=== PATIENT | male | born 1950 | race Caucasian/White ===

== ENCOUNTER 2019-12-21 14:14 | Inpatient (IN) | payer OTHER, SELFPAY ==
[~2019-12-21] VITALS: Ht 185.4 cm; Wt 69.4 kg
[2019-12-21] MEDS ORDERED: TAMSULOSIN HCL0.4 MG PO (14:21)
[2019-12-21] MEDS ORDERED: ASPIRIN ADULT L81 M5 PO (14:22)
[2019-12-21] MEDS ORDERED: ATORVASTATIN CA10 M1 OP (14:22)
[2019-12-21 14:26] VITALS: Ht 185.4 cm; Wt 69.4 kg
[2019-12-21 15:17] LABS: microscopic required? YES; urine erythrocyte NEGATIVE (NEGATIVE)
[2019-12-21 15:20] LABS: BASOPHIL % 0.2 % (0-2); PLATELET COUNT 111 x10^3mcL (130-400)
[2019-12-21 15:36] LABS: CALCIUM 7.9 mg/dL (8.5-10.1); CHLORIDE SERUM 101 mmol/L (98-107); CREATININE SERUM 0.8 mg/dL (0.7-1.3); GFR1 > 60 mL/min; GLUCOSE SERUM 103 mg/dL (74-106); POTASSIUM SERUM 3.4 mmol/L (3.5-5.1); SODIUM SERUM 139 mmol/L (136-145)
[2019-12-21 15:39] LABS: ALKALINE PHOSPHATASE 52 U/L (46-116); ALT/SGPT 28 U/L (16-63); AST/SGOT 46 U/L (15-37); BILIRUBIN TOTAL 0.7 mg/dL (0.20-1.00); C REACTIVE PROTEIN 5.7 mg/dL (<=0.9); LACTIC DEHYDROGENASE (LDH) 381 U/L (100-190); TOTAL PROTEIN, SERUM 6.4 g/dL (6.4-8.2)
[2019-12-21 15:40] LABS: ALBUMIN 2.6 g/dL (3.4-5.0)
[2019-12-21 18:18] VITALS: BP 104/66
[2019-12-21 21:48] VITALS: BP 104/66
[2019-12-22 05:55] VITALS: BP 105/69
[2019-12-22 06:33] LABS: BASOPHIL % 0.1 % (0-2)
[2019-12-22 06:44] LABS: PLATELET COUNT 111 x10^3mcL (130-400)
[2019-12-22 06:59] LABS: CALCIUM 8.2 mg/dL (8.5-10.1); CARBON DIOXIDE 28.8 mmol/L (21-32); CHLORIDE SERUM 103 mmol/L (98-107); CREATININE SERUM 0.8 mg/dL (0.7-1.3); GFR1 > 60 mL/min; GLUCOSE SERUM 89 mg/dL (74-106); POTASSIUM SERUM 3.9 mmol/L (3.5-5.1); SODIUM SERUM 140 mmol/L (136-145)
[2019-12-22 08:00] VITALS: BP 99/60
[2019-12-22 12:30] VITALS: BP 96/58
[2019-12-22 18:25] VITALS: BP 101/68
[2019-12-22 21:00] VITALS: BP 97/65
[2019-12-23 06:00] VITALS: BP 94/64
[2019-12-23 07:13] LABS: CALCIUM 8.5 mg/dL (8.5-10.1); CARBON DIOXIDE 30.8 mmol/L (21-32); CHLORIDE SERUM 106 mmol/L (98-107); CREATININE SERUM 0.8 mg/dL (0.7-1.3); GFR1 > 60 mL/min; GLUCOSE SERUM 92 mg/dL (74-106); POTASSIUM SERUM 4.6 mmol/L (3.5-5.1); SODIUM SERUM 142 mmol/L (136-145)
[2019-12-23 07:45] LABS: BASOPHIL % 0.4 % (0-2); PLATELET COUNT 134 x10^3mcL (130-400); RED CELL DISTRIBUTION WIDTH 13.2 % (11.5-14.5)
[2019-12-23 08:45] VITALS: BP 96/62
[2019-12-23 12:53] VITALS: BP 94/59
[2019-12-23 16:35] VITALS: BP 98/63
[2019-12-23 19:30] VITALS: BP 106/67
[2019-12-23 20:30] VITALS: BP 108/87
[2019-12-24 06:09] VITALS: BP 103/66
[2019-12-24 08:52] VITALS: BP 92/61
[2019-12-24 12:54] VITALS: BP 84/52
[2019-12-24 16:42] VITALS: BP 114/73
[2019-12-24 20:40] VITALS: BP 113/70
[2019-12-25 05:18] VITALS: BP 104/65
[2019-12-25 08:30] VITALS: BP 97/63
[2019-12-25 17:00] VITALS: BP 126/72
[2019-12-25 21:00] VITALS: BP 105/66
[2019-12-26 06:30] VITALS: BP 104/64
[2019-12-26 07:32] LABS: CALCIUM 8.4 mg/dL (8.5-10.1); CARBON DIOXIDE 28.7 mmol/L (21-32); CHLORIDE SERUM 103 mmol/L (98-107); CREATININE SERUM 0.7 mg/dL (0.7-1.3); GFR1 > 60 mL/min; GLUCOSE SERUM 84 mg/dL (74-106); POTASSIUM SERUM 3.2 mmol/L (3.5-5.1); SODIUM SERUM 141 mmol/L (136-145)
[2019-12-26 07:46] LABS: BASOPHIL % 0.5 % (0-2); PLATELET COUNT 241 x10^3mcL (130-400)
[2019-12-26 09:30] VITALS: BP 112/72
[2019-12-26 12:30] VITALS: BP 100/58
[2019-12-26 17:30] VITALS: BP 100/58
[2019-12-27 05:45] VITALS: BP 100/68
[2019-12-27 09:13] VITALS: BP 90/63
[2019-12-27 12:28] LABS: CALCIUM 8.5 mg/dL (8.5-10.1); CARBON DIOXIDE 30.5 mmol/L (21-32); CHLORIDE SERUM 104 mmol/L (98-107); CREATININE SERUM 0.9 mg/dL (0.7-1.3); GFR1 > 60 mL/min; GLUCOSE SERUM 105 mg/dL (74-106); POTASSIUM SERUM 4.5 mmol/L (3.5-5.1); SODIUM SERUM 140 mmol/L (136-145)
[2019-12-27 12:36] VITALS: BP 90/63
[2019-12-27 13:30] VITALS: BP 96/56
[2019-12-27 13:38] LABS: BASOPHIL % 0.5 % (0-2); PLATELET COUNT 313 x10^3mcL (130-400); RED CELL DISTRIBUTION WIDTH 12.3 % (11.5-14.5)
== END 2019-12-27 14:15 | disposition other institution (70) | DRG 177 ==
LOC: ED 14:14 → DU 16:01
PROVIDERS: Emergency Medicine; ADMIT Internal Medicine
DX: U07.1 COVID-19 (principal); J96.01 Acute respiratory failure with hypoxia; J12.89 Other viral pneumonia; E78.5 Hyperlipidemia, unspecified; N40.0 Benign prostatic hyperplasia without lower urinary tract symptoms; D72.829 Elevated white blood cell count, unspecified; D69.6 Thrombocytopenia, unspecified; E78.00 Pure hypercholesterolemia, unspecified; Z79.899 Other long term (current) drug therapy
CPT/HCPCS: 36600; 83880; 85378; G0378; J0456; J0696; J1650; J7040; J7060; Q0092

== ENCOUNTER 2020-01-10 12:22 | Inpatient (IN) | payer OTHER, SELFPAY ==
[~2020-01-10] VITALS: Ht 182.9 cm; Wt 68.9 kg
[~2020-01-10 12:22] MED LIST: ASPIRIN ADULT L81 M5 PO; ATORVASTATIN CA10 M1 OP; TAMSULOSIN HCL0.4 MG PO
[2020-01-10 12:33] VITALS: Ht 182.9 cm; Wt 68.9 kg
[2020-01-10 12:53] LABS: BASOPHIL % 1.5 % (0-2); PLATELET COUNT 279 x10^3mcL (130-400); RED CELL DISTRIBUTION WIDTH 13.3 % (11.5-14.5)
--- NOTE | 2020-01-10 12:56 | NUR ---
BIB [facility] FROM [facility] FOR INITIAL CALL OF SOB. PT PRESENTS AND DENIES BEING SOB AT ANYTIME TODAY. PT STATES HE HAD LOW B/P PER THE RN AT THE [facility]. [facility] NURSING STAFF INSISTED PT BE TRANSPORTED TO [facility] IN SPITE OF PT BEING ASYMPTOMATIC WHEN [facility] ARRIVE. PT MENTATION APPROPRIATE. DENIES SYMPTOMS OF LIGHTHEADEDNESS OR DIZZINESS. COMFORT MEASURES AND SUPPORTIVE CARE INITIATED. PREP FOR ERMD MSE. O2 2L REMOVED FOR ABG. DURING 5 MIN IN ROOM (OFF 02) PT 02 SATS REMAINED 95-95%.AGENCY DOCUMENTATION DONE BY Staff Name/Title - :TAMIKA NORWOOD RN [employer] User ID - :[id number] Agency Name - :CERTIFIED Time Documented - From - :0700 To - :1900
[2020-01-10 13:06] LABS: CALCIUM 8.5 mg/dL (8.5-10.1); CHLORIDE SERUM 104 mmol/L (98-107); CREATININE SERUM 0.9 mg/dL (0.7-1.3); GFR1 > 60 mL/min; GLUCOSE SERUM 90 mg/dL (74-106); POTASSIUM SERUM 3.8 mmol/L (3.5-5.1); SODIUM SERUM 138 mmol/L (136-145)
--- NOTE | 2020-01-10 13:09 | NUR ---
CONTINUED CARE ENDORSED TO EDDI MONCADA. PT STABLE AT THIS TIME.
[2020-01-10 13:10] LABS: ALKALINE PHOSPHATASE 83 U/L (46-116); ALT/SGPT 48 U/L (16-63); AST/SGOT 30 U/L (15-37); BILIRUBIN TOTAL 0.5 mg/dL (0.20-1.00); C REACTIVE PROTEIN 1.9 mg/dL (<=0.9); LACTIC DEHYDROGENASE (LDH) 183 U/L (100-190)
[2020-01-10 13:16] LABS: ALBUMIN 2.7 g/dL (3.4-5.0)
--- NOTE | 2020-01-10 13:22 | NUR ---
ASSUMING CARE OF PT. PT SITTING IN POSITION OF COMFORT. AWAKE AND ALERT. PT STATES AFTER TALKING WITH HIS ON THE PHONE AND WALKING FROM HIS RROM TO ANOTHER THE STAFF TOOK HIS ROUTINE VITALS FOR THE AM. THEY STATED THAT BP AND O2 WAS LOW AND THAT IS THE REASON FOR TRANSFER HERE. AT THE TIME OF ASSESSMENT PT BP 103/62 AND C2 IS 97% RA. LUNGS CTA- LEFT SIDE SLIGHTLY DEMINISHED. RESP EVEN AND UNLABORED. PT SPEAKING FULL AND COMPLETE SENTENCES. AA/OX4. PT STATES "I AM FEELING FINE AND NORMAL" PT HAS NO COMPLAINTS AT THIE TIME. PT ON FULL CM. 2 CIM OFFICERS OUTSIDE THE ROOM. PT DENIES COUGH, SOB OR DIZZINESS. WILL CONT TO MONITOR.
[2020-01-10 13:43] LABS: microscopic required? NO
[2020-01-10 14:14] LABS: urine erythrocyte NEGATIVE (NEGATIVE)
--- NOTE | 2020-01-10 14:34 | NUR ---
PT RESTING IN BED IN POSITION OF COMFORT. RESP EVEN AND UNLABORED. AWAKE AND ALERT. WILL CONT TO MONITOR.
--- NOTE | 2020-01-10 14:39 | NUR ---
REPORT CALLED TO KATHY MONCADA TO ASSUME CARE OF PT.
[2020-01-10 15:17] VITALS: BP 106/69
--- NOTE | 2020-01-10 15:40 | NUR ---
PATIENT RECIEVED FROM EMERGENCY ROOM AND IS UNDER COVID PROTOCAL. DEENA TWAS HERE ABOUT 16 DAYS AGO AND POSITIVE OF COVID AGT THAT TIME. HE WAS TREATED AND THEN RETURNED TO [facility] WHEN HE MET THE CRITERIA AFTER BEING SEEN AND TREATED FOR SOME TIME BY DR GOINS AND DR RICH. PATIENT HAS IV TO THE LEFT FROEARM AND HAD RECEIVED A BOLUS IN THE ER. PATIENT HAS BEEN AMBULATORY WT HISTORY OF COVID, PROSTATE ENLARGEMENT AND LIPIDEMIA. PATINGHIA THAS VITALS AT THIS TIME AT 1036/69, 20, 73, 98.6, 99%. GUARDS AT BEDSIDE AND SECURITY HAS BEEN MAINTAINED. WILL SEND MRSA OF THE [facility] PER PROTOCAL.
[2020-01-10 17:50] VITALS: BP 118/66
--- NOTE | 2020-01-10 18:42 | NUR ---
TOOK THE COVID TEST ORDERED ALONG IWTH THE MRSA. PATIENT HAS BEEN GIVEN ZOSYN AND TO FOLLOW UP WITH ZITHROMAX. DENIES ANY DIZZINESS OR SOB AT THIS TIME. GUARDS AT BEDSIDE AND SECURITY HAS BEEN MAINTAINED.
--- NOTE | 2020-01-10 19:15 | NUR ---
RECIEVED PT RESTING IN BED WITH NO ACUTE DISTRESS NOTED AT THIS TIME, ASSESSMENT PERFORMED AT THIS TIME (SEE SHIFT ASSESSMENT), PT IS A/OX4 NO COMPLAINTS OF PEREZ OR DIZZINESS AT THIS TIME, PT DENIES CHEST PAIN OR PRESSURE, PT LUNG SOUNDS MILDLY DIMINISHED, NO SOB ON RA, RESPIRATIONS EVEN AND UNLABORED, O2 SATURATION AT 98%, PERIPHERAL PULSES PALPABLE THROUGHOUT, NO EDEMA NOTED AT THIS TIME, CAP REFILL LESS THAN 3 SECONDS, TELE 3 NSR, IV TO THE LFA SALINE LOCKED, ALL NEEDS ATTENDED TO AT THIS TIME, SAFETY PRECAUTIONS IN PLACE, WILL CONTINUE TO MONITOR
[2020-01-10 20:15] VITALS: BP 87/56
--- NOTE | 2020-01-10 20:15 | NUR ---
PT BP 87/56 HR OF 89, PT ASYMPTOMATIC, INFORMED DR SAUCEDO, OBTAINED ORDER FOR NS BOLUS OF 250ML, WILL IMPLEMENT ORDER AND REASSESS.
[2020-01-10 21:30] VITALS: BP 95/65
--- NOTE | 2020-01-10 21:45 | NUR ---
PT BLOOD PRESSURE 95/65, INFORMED DR SAUCEDO, NO NEW ORDERS AT THIS TIME.
--- NOTE | 2020-01-10 23:21 | NUR ---
DR SNYDER BY AND DISCUSSED PLAN OF CARE.
--- NOTE | 2020-01-10 23:40 | NUR ---
PT RESTING IN BED WATCHING TV WITH NO ACUTE DISTRESS NOTED AT THIS TIME, PT DENIES PAIN OR SOB AT THIS TIME, ALL NEEDS ATTNEDED TO AT THIS TIME,SAFETY PRECAUTIONS IN PLACE, WILL CONTINUE TO MONITOR
[2020-01-11 04:37] VITALS: BP 92/64
--- NOTE | 2020-01-11 05:16 | NUR ---
PT RESTED COMFORTABLY THROUGH THE NIGHT WITH NO ACUTE DISTRESS. PT DID HAVE EPISODE OF HYPOTENSION, DR SAUCEDO WAS MADE AWARE AND 250ML BOLUS WAS GIVEN AND PT BP INCREASED AND DR SAUCEDO WAS MADE AWARE AND NO NEW ORDERS WERE GIVEN AT THAT TIME, PT REMAINED ASYMPTOMATIC, ALL PT NEEDS ATTNEDED TO THOUGH CARE, PT HAD NO EPISODES OF SOB ON RA, SAFETY PRECAUTIONS IN PLACE WILL CONTINUE TO MONITOR
[2020-01-11 06:33] LABS: BASOPHIL % 0.4 % (0-2); PLATELET COUNT 257 x10^3mcL (130-400); RED CELL DISTRIBUTION WIDTH 13.6 % (11.5-14.5)
[2020-01-11 06:45] LABS: CALCIUM 8.6 mg/dL (8.5-10.1); CARBON DIOXIDE 28.9 mmol/L (21-32); CHLORIDE SERUM 107 mmol/L (98-107); GFR1 > 60 mL/min; GLUCOSE SERUM 77 mg/dL (74-106); POTASSIUM SERUM 4.5 mmol/L (3.5-5.1); SODIUM SERUM 142 mmol/L (136-145)
--- NOTE | 2020-01-11 07:40 | NUR ---
RECEIVED PT IN BED A/A/OX4 DENIES PEREZ. RESP EVEN AND UNLABORED WITH DIMINISHED BS TO RLL. NO COUGH NOTED AT THIS TIME. REPORTS IMPROVEMENT WITH BREATHING. ON CONT PULSE OX AT 96% ON RA. ENCOURAGE DEEP BREATHING AND PRONING TOLERATED. NSR IN 70S. NO EDEMA NOTED WITH IV TO LFA. ABD SOFT, NONTENDER WITH ACTIVE BS X4. VOIDING FREELY USING URINAL. CALL LIGHT IN REACH NEEDS ATTENDED TO.
[2020-01-11 08:25] VITALS: BP 100/68
--- NOTE | 2020-01-11 11:20 | NUR ---
PT PROVIDED WITH I.S. REQUESTED BY DR. RICH, PT GIVEN INSTRUCTIONS ON USE. TO USE 10X/HR WHILE AWAKE. PT VERBALIZED UNDERSTANDING AND SATATED HE HAD USED ON BEFORE. CALL LIGHT IN REACH NEEDS ATTENDED TO.
[2020-01-11 12:35] VITALS: BP 92/60
--- NOTE | 2020-01-11 15:30 | NUR ---
PT RESTING AT THIS TIME. DENIES ANY DISCOMFORT. CALL LIGHT IN REACH NEEDS ATTENDED TO. C.O. AT DOOR.
[2020-01-11 16:39] VITALS: BP 104/55
--- NOTE | 2020-01-11 18:40 | NUR ---
PT RESTING AT THIS TIME. DENIES ANY DISCOMFORT CALL LIGHT IN REACH NEEDS ATTENDED . DENIES ANY PAIN/DISCOMFORT. CALL LIGHT IN REACH NEEDS ATTENDED TO AND ANTICIPATED. C.O. AT DOOR.
--- NOTE | 2020-01-11 19:44 | NUR ---
RECIEVED PT FROM PREVIOUS SHIFT NURSE. PT RESTING COMFORTABLY IN BED, HOB ELEVATED, AOX4, ABLE TO FOLLOW COMMANDS, SPEECH CLEAR, DENIES PEREZ, N/V, OR PAIN AT THE MOMENT, NO FACIAL DROOPING NOTED, AND PT CALM AND COOPERATIVE. RR EVEN AND UNLABORED ON RA, CHEST RISING EQUALLY, DENIES SOB, DIFFICULTY BREATHING, AND NO COUGH NOTED. TELE #3 NSR, CONT PULSE OX O2: 97, DENIES CHEST PAIN OR PRESSURE. IV LFA WNL, NO ERYTHEMA, EDEMA, OR DRAINAGE NOTED, SALINE LOCKED AT THE MOMENT. PT MAINTAINED ON DROPLET/CONTACT PRECAUTION FOR COVID (+). BED IN LOWEST POSITION AND CALL LIGHT WITHIN REACH. TWO CORRECTIONAL OFFICERS PRESENT. WILL CONTINUE TO MONITOR.
[2020-01-11 21:12] VITALS: BP 104/63
--- NOTE | 2020-01-11 21:30 | NUR ---
RECIEVED VANCO TROUGH LEVEL OF 11.7. PER [employer], OKAY TO GIVE THE 2100 DOSE.
--- NOTE | 2020-01-11 22:18 | NUR ---
PT INSTRUCTED ON THE IMPORTANCE OF USING THE INCENTIVE SPIROMETER AT BED SIDE.
--- NOTE | 2020-01-12 02:01 | NUR ---
PT RESTING COMFORTABLY IN BED, EASILY AROUSABLE. RR EVEN AND UNLABORED ON RA, CHEST RISING EQUALLY. TELE #3 NSR, CONT PULSE OX O2: 94%. NO SIGNS OF ACUTE CHANGE OR DISTRESS NOTED. IV LFA WNL, NO ERYTHEMA, EDEMA, OR DRAINAGE NOTED. PT MAINTINED ON DROPLET/CONTACT ISOLATION FOR COVID-19(+). BED IN LOWEST POSITION AND CALL LIGHT WITHIN REACH. TWO CORRECTIONAL OFFICERS PRESENT, WILL CONTINUE TO MONITOR.
[2020-01-12 05:45] VITALS: BP 88/57
--- NOTE | 2020-01-12 06:14 | NUR ---
PT RESTING COMFORTABLY IN BED, EASILY AROUSABLE. AOX4, ABLE TO FOLLOW COMMANDS, SPEECH CLEAR, DENIES PEREZ, N/V, OR PAIN AT THE MOMENT, NO FACIAL DROOPING NOTED, AND PT CALM AND COOPERATIVE WITH CARE. RR EVEN AND UNLABORED ON RA, CHEST RISING EQUALLY, DENIES SOB, DIFFICULTY BREATHING, AND NO COUGH NOTED. TELE #3 NSR, DENIES CHEST PAIN OR PRESSURE, CONT PULSE OX O2:96%. COMMODE AND URINAL AT BEDSIDE. IV LFA WNL, NO ERYTHEMA, EDEMA, OR DRAINAGE NOTED. PT ON DROPLET/CONTACT ISOLATION FOR COVID-19(+). BED IN LOWEST POSITION AND CALL LIGHT WITHIN REACH. TWO CORRECTIONAL OFFICERS PRESENT BY THE DOOR. WILL ENDORSE CARE TO ONCOMING SHIFT NURSE, AND WILL CONTINUE TO MONITOR.
[2020-01-12 07:03] LABS: ALBUMIN 2.4 g/dL (3.4-5.0); ALKALINE PHOSPHATASE 74 U/L (46-116); ALT/SGPT 34 U/L (16-63); AST/SGOT 19 U/L (15-37); BILIRUBIN TOTAL 0.57 mg/dL (0.20-1.00); C REACTIVE PROTEIN 1.6 mg/dL (<=0.9); CALCIUM 8.6 mg/dL (8.5-10.1); CARBON DIOXIDE 29.2 mmol/L (21-32); CHLORIDE SERUM 105 mmol/L (98-107); GFR1 > 60 mL/min; GLUCOSE SERUM 78 mg/dL (74-106); POTASSIUM SERUM 4.2 mmol/L (3.5-5.1); SODIUM SERUM 140 mmol/L (136-145); TOTAL PROTEIN, SERUM 6.6 g/dL (6.4-8.2)
--- NOTE | 2020-01-12 07:30 | NUR ---
RECEIVED PT IN BED A/A/OX4 DENIES PEREZ. RESP EVEN AND UNLABORED WITH DIMINISHED BS TO RLL. DENIES ANY COUGH AT THIS TIME. 97% ON RA. ENCOURAGE USE OF IS 10X/HR WHILE AWAKE. ABD SOFT, NONTENDER WITH ACTIVE BS X4. DENIES ANY N/V AT THIS TIME. VOIDING FREELY USING URINAL. AMBULATORY WITH LIMITED MOBILITY D/T SHACKLE TO RT ANCKLE. DROPLET PRECAUTIONS MAINTAINED. CIM GUARD AT DOOR. CALL LIGHT IN REACH NEEDS ATTENDED TO.
[2020-01-12 08:19] LABS: BASOPHIL % 0.8 % (0-2); PLATELET COUNT 242 x10^3mcL (130-400); RED CELL DISTRIBUTION WIDTH 14.1 % (11.5-14.5)
[2020-01-12 08:30] VITALS: BP 98/61
--- NOTE | 2020-01-12 10:30 | NUR ---
PT IV TO LFA LEAKING. NEW IV INSERTED TO RFA 22G.
[2020-01-12 12:15] VITALS: BP 97/61
--- NOTE | 2020-01-12 12:15 | NUR ---
PT RESTING AT THIS TIME. PT STATED HE HAD BEEN WALKING AROUND AND ITTING AT BEDSIDE CHAIR. REMAINS SHACKLED TO RT ANCKLE WITH EXTENSION TO ALLOW HIM TO SIT UP AND STAND REQUESTED BY DR. RICH. CALL LIGHT IN REACH NEEDS ATTENDED TO AND ANTICIPATED.
[2020-01-12 15:51] VITALS: BP 88/54
--- NOTE | 2020-01-12 16:00 | NUR ---
PT RESTING AT THIS TIME. DENIES ANY DISCOMFORT REMAINS ON RA. CALL LIGHT IN REACH NEEDS ANTICIPATED.
[2020-01-12 17:50] VITALS: BP 100/60
--- NOTE | 2020-01-12 18:30 | NUR ---
PT RESTING AT THIS TIME. DENIES ANY DISCOMFORT. REMAINS IN ROOM AIR. CALL LIGHT IN REACH NEEDS ATTENDED TO.
--- NOTE | 2020-01-12 19:10 | NUR ---
RECEIVED PATIENT FROM PREVIOUS SHIFT NURSE. PATIENT AWAKE, ALERT AND ORIENTED X4. NO ACUTE DISTRESS. EVEN AND UNLABORED BREATHING, ROOM AIR. TELE # 3, NSR. DENIES ANY PAIN, SOB, OR CHEST PAIN AT THIS MOMENT. IV WNL. NO ERYTHEMA/EDEMA AT IV SITE. GOOD BLOOD RETURN. BED IN LOWEST POSITION. CALL LIGHT WITHIN REACH. ALL SAFETY PRECUATIONS IN PLACE.
[2020-01-12 22:43] VITALS: BP 98/62
--- NOTE | 2020-01-13 01:29 | NUR ---
NEW IV STARTED ON PATIENTS RIGHT WRIST. 2OG. IV WNL. GOOD BLOOD RETURN. FLUIDS INFUSING WELL.
--- NOTE | 2020-01-13 01:30 | NUR ---
PATIENT REMAINS IN NO ACUTE DISTRESS. SAFETY PRECAUTIONS IN PLACE. TELE #3, ROOM AIR. ABX INFUSING WELL. BED IN LOWEST POSITION. CALL LIGHT WITHIN REACH.
--- NOTE | 2020-01-13 06:00 | NUR ---
PATIENT SLEEPING. NO ACUTE DISTRESS. EVEN AND UNLABORED BREATHING, ROOM AIR. NO C/O OF PAIN, CHEST PAIN OR SOB AT THIS MOMENT. TELE #3, NSR. ANTIBIOTICS INFUSING WELL. BED IN LOWEST POSITION. CALL LIGHT WITHIN REACH. WILL ENDORSE CARE TO ONCOMING SHIFT. SAFETY PRECAUTIONS IN PLACE.
[2020-01-13 07:06] LABS: CALCIUM 8.8 mg/dL (8.5-10.1); CARBON DIOXIDE 31.4 mmol/L (21-32); CHLORIDE SERUM 106 mmol/L (98-107); CREATININE SERUM 1.1 mg/dL (0.7-1.3); GFR1 > 60 mL/min; GLUCOSE SERUM 84 mg/dL (74-106); POTASSIUM SERUM 4.6 mmol/L (3.5-5.1); SODIUM SERUM 143 mmol/L (136-145)
[2020-01-13 07:12] LABS: BASOPHIL % 1.3 % (0-2); PLATELET COUNT 236 x10^3mcL (130-400); RED CELL DISTRIBUTION WIDTH 13.6 % (11.5-14.5)
[2020-01-13 08:25] VITALS: BP 94/64
--- NOTE | 2020-01-13 08:39 | NUR ---
RECEIVED FROM NIGHT NURSE. PT SITTING UP AND EATING BREAKFAST. DENIES PAIN AND APPEARS COMFORTABLE. BED IN LOWEST POSITION. INSTRUCTED TO USE CALL LIGHT AT BEDSIDE FOR ANY NEEDS.
--- NOTE | 2020-01-13 12:16 | NUR ---
CALLED [facility] AND REQUESTED THAT PATIENT'S COVID TEST REPORT BE FAXED TO US.
[2020-01-13 13:03] VITALS: BP 117/53
[2020-01-13 14:47] VITALS: BP 117/53
[2020-01-13 17:52] VITALS: BP 90/58
--- NOTE | 2020-01-13 18:42 | NUR ---
PT SET UP WITH PAD TO USE BEDSIDE COMMODE. CONSISTENTLY DENIES PAIN. RESTING COMFORTABLY IN BED. CALL LIGHT AT BEDSIDE, BED IN LOW POSITION. WILL ENDORSE TO NIGHT NURSE.
--- NOTE | 2020-01-13 20:30 | NUR ---
PT IS A/O x4. TELE #3, NSR. DENIES ANY CHEST PAIN OR PRESSURE. PULSES ARE PRESENT. NO EDEMA NOTED. LUNGS CLEAR IN ALL FEILDS. DENIES ANY SOB. EQUAL CHEST RISE AND FALL. NO SIGN OF RESP DISTRESS. ON RA. BOWEL SOUNDS ARE PRESENT. DENIES ANY ABD PAIN OR DISTRESS. BOWEL SOUNDS ARE PRESENT. ABD IS FLAT AND SOFT. VOIDS FREELY. CUFF ON R ANKLE, CIM OFFICER AT BEDSIDE. SKIN INTACT. DENIES ANY PAIN OR DISTRESS. IV ON RW, INTACT AND PATENT. NO SIGN OF INFILTRATION OR IRRITATION. ON DROPLET/CONTACT ISO FOR COVID POSITIVE. BED IS AT LOWEST SETTING. CALL LIGHT WITHIN REACH. WILL CONTINUE TO MONTIOR.
[2020-01-13 20:35] VITALS: BP 93/56
--- NOTE | 2020-01-14 | NUR ---
PT IS RESTING IN BED. DENIES ANY PAIN OR DISTRESS. DENIES ANY SOB. EQUAL CHEST RISE AND FALL. URINAL EMPTIED. BED IS AT LOWEST SETTING. CALL LIGHT WITHIN REACH. WILL CONTINUE TO MONTIOR.
[2020-01-14 06:19] VITALS: BP 93/62
--- NOTE | 2020-01-14 06:24 | NUR ---
PT IS RESTING IN BED. DENIES ANY PAIN OR DISTRESS. NO SOB. ON RA ALL NIGHT. SPO2 IN THE MID 90S. NO ACUTE EVENT OCCURED AT NIGHT. BED IS AT LOWEST SETTING. CALL LIGHT WITHIN REACH. WILL ENDORSE TO AM NURSE.
--- NOTE | 2020-01-14 08:30 | NUR ---
RECEIVED PT FROM NIGHT NURSE. PT AAOX4, RESTING COMFORTABLY IN BED WATCHING TV. DENIES PAIN. BED IN LOW POSITION, CALL LIGHT AT BEDSIDE. INSTRUCTED TO CALL FOR ANY NEEDS. WILL CONTINUE TO MONITOR.
[2020-01-14 09:00] VITALS: BP 95/54
[2020-01-14 12:35] VITALS: BP 96/57
[2020-01-14 13:19] VITALS: BP 96/57
[2020-01-14 17:02] VITALS: BP 110/65
--- NOTE | 2020-01-14 18:09 | NUR ---
PT RESTING COMFORTABLY IN BED. IV RUNNING 250 MLS/HR ZITHROMAX. IV SITE WNL, NO REDNESS/SWELLING/PAIN. BREATHING UNLABORED AND SAO2 95% ON RA. NSR ON THE MONITOR. CIM GUARD AT THE DOOR. BED IN LOW POSITION, CALL LIGHT AT BEDSIDE. WILL ENDORSE TO NIGHT NURSE.
--- NOTE | 2020-01-14 18:24 | NUR ---
NURSING CO-SIGN THE DOCUMENTATION ENTERED BY THE IP HAS BEEN REVIEWED. REVIEWED/CO-SIGNED BY: Nataliya Lopez DOCUMENTATION DONE BY: RUFUS STOUT RN
[2020-01-14 19:30] VITALS: BP 93/55
--- NOTE | 2020-01-14 19:30 | NUR ---
PT RECIEVED FROM DAY NURSE. PT RESTING IN BED AT THIS TIME. DENIES PAIN OR DISCOMFORT. TELE 3, NSR. DENIES CP, NV, DIZZINESS, OR PALPATATIONS AT THIS TIME. PALPABLE PULSES, NO EDEMA NOTED AT THIS TIME. BREATHING E/U ON RA. DENIES SOB AT THIS TIME. ABD SOFT AND ROUND, DENIES PAIN TO PALPATION. GEB WEAKNESS, PT AMBULATORY AT BASELINE. IV TO RW, CDI. BED AT LOWEST POSITION. CALL LIGHT WITHIN REACH, WILL CONTINUE TO MONITOR.
--- NOTE | 2020-01-15 | NUR ---
PT RESTING IN BED AT THIS TIME. DENIES PAIN OR DISCOMFORT. BREATHING E/U ON 2L NC. NO S/S OF ACUTE DISTRESS NOTED AT THIS TIME. BED AT LOWEST POSITION. CALL LIGHT WITHIN REACH. WILL CONTINUE TO MONITOR.
[2020-01-15 06:34] VITALS: BP 94/54
[2020-01-15 06:40] LABS: BASOPHIL % 0.9 % (0-2); PLATELET COUNT 230 x10^3mcL (130-400); RED CELL DISTRIBUTION WIDTH 14.4 % (11.5-14.5)
--- NOTE | 2020-01-15 06:52 | NUR ---
PT RESTING IN BED AT THIS TIME. DENIES PAIN OR DISCOMFORT. PT BREATHING E.U ON RA. NO S/S OF ACUTE DISTRESS NOTED AT THIS TIME. ALL NEEDS AND CONCERNS ADDRESSED THIS SHIFT. WILL ENDORSE TO DAY NURSE.
[2020-01-15 07:14] LABS: ALKALINE PHOSPHATASE 71 U/L (46-116); ALT/SGPT 34 U/L (16-63); AST/SGOT 20 U/L (15-37); BILIRUBIN TOTAL 0.45 mg/dL (0.20-1.00); C REACTIVE PROTEIN 1.2 mg/dL (<=0.9); CALCIUM 8.8 mg/dL (8.5-10.1); CARBON DIOXIDE 30.5 mmol/L (21-32); CHLORIDE SERUM 108 mmol/L (98-107); GFR1 > 60 mL/min; GLUCOSE SERUM 78 mg/dL (74-106); POTASSIUM SERUM 4.5 mmol/L (3.5-5.1); SODIUM SERUM 143 mmol/L (136-145); TOTAL PROTEIN, SERUM 6.6 g/dL (6.4-8.2)
--- NOTE | 2020-01-15 07:30 | NUR ---
PT IS AAOX4. TELE [address] READING NSR. RESP EVEN, UNLABORED. LUNG SOUNDS CTA. ON R/A. IV CATH TO RW FLUSHED AND PATENTS. SITE WNL. COVERED WITH CDI DRESSING. PT DENIES PAIN AND DISCOMFORT. CALL LIGHT WITHIN REACH. BED IN LOWEST POSITION. 2 GUARDS AT DOOR ON ONE TO ONE SUPERVISION.
[2020-01-15 08:20] LABS: ALBUMIN 2.5 g/dL (3.4-5.0)
--- NOTE | 2020-01-15 08:59 | NUR ---
SCHEDULE MEDS GIVEN AND TOLERATED WELL. PT EDUCATED ON D-DIMER LEVEL AND THE BENEFITS AND S/E OF LOVENOX. PT EDUCATED ON I.S.. PT CAN ACHEIVE 2500ML ON I.S.. DENIES PAIN. CALL LIGHT WITHIN REACH. DROPLET PRECAUTIONS MAINTAINED.
--- NOTE | 2020-01-15 11:13 | NUR ---
PT RESTING IN BED. RESP EVEN AND UNLABORED. NO DISTRESS NOTED. 2 GUARDS AT DOOR ON ONE TO ONE SUPERVISION. CALL LIGHT WITHIN REACH. WILL CONTINUE TO MONITOR.
[2020-01-15 12:48] VITALS: BP 94/60
--- NOTE | 2020-01-15 13:36 | NUR ---
ZOSYN IVPB INITIATED. RESP EVEN AND UNLABORED. NO DISTRESS NOTED. PT DENIES PAIN AND DISCOMFORT. PT ASSISTED TO BEDSIDE FOR LUNCH. CALL LIGHT WITHIN REACH.
--- NOTE | 2020-01-15 16:30 | NUR ---
ZITHROMAX IVPB INITIATED. RESP EVEN AND UNLABORED. PT ASSISTED TO SIT IN BEDSIDE CHAIR WITH BED TRAY PLACED IN FRONT OF HIM. PT DENIES PAIN. CALL LIGHT WITHIN REACH.
[2020-01-15 18:00] VITALS: BP 89/48
--- NOTE | 2020-01-15 18:17 | NUR ---
PT SITTING UP IN BEDSIDE CHAIR. RESP EVEN AND UNLABORED. NO RESP DISTRESS NOTED. IV CATH TO LW PATENT. SITE WNL. PT DENIES PAIN. CALL LIGHT WITHIN REACH. WILL ENDORSE ALL CARE TO NOC RN.
[2020-01-15 20:00] VITALS: BP 97/56
--- NOTE | 2020-01-15 20:00 | NUR ---
RECEIVED PT AWAKE ALERT AND VERBALLY RESPONSIVE.BREATHING EASY AND NON-LABORED.TOLERATING ROOMAIR @ 95%.DENIES SOB/DIFFICULTY BREATHING.DENIES CHESTPAIN.BP 97/56 MMHG,HR 83.ON DROPLET PRECAUTION FOR COVID+.WILL OBSERVE PROTOCOL.GUARDS OUTSIDE BY THE ROOM.WILL CONTINUE TO MONITOR.
[2020-01-16 05:06] VITALS: BP 97/62
--- NOTE | 2020-01-16 05:11 | NUR ---
PT SLEPT WELL ALL NIGHT.BREATHING EASY AND NON-LABORED.NO ASE NOTED FROM ZOSYN AND VANCO IV ATB.DENIES ANY PAIN ALL NIGHT.ON DROPLET PRECAUTION FOR + COVID.GOODHANDWASHING TECHNIQUE OBSERVED.ALL NEEDS MET.GUARDS OUTSIDE BY THE DOOR.ALL NEEDS MET.WILL CONTINUE TO MONITOR.
[2020-01-16 06:55] LABS: BASOPHIL % 0.9 % (0-2); PLATELET COUNT 220 x10^3mcL (130-400)
[2020-01-16 07:08] LABS: RED CELL DISTRIBUTION WIDTH 14.6 % (11.5-14.5)
[2020-01-16 07:09] LABS: ALKALINE PHOSPHATASE 74 U/L (46-116); ALT/SGPT 40 U/L (16-63); AST/SGOT 26 U/L (15-37); BILIRUBIN TOTAL 0.43 mg/dL (0.20-1.00); C REACTIVE PROTEIN 1.1 mg/dL (<=0.9); CALCIUM 8.7 mg/dL (8.5-10.1); CARBON DIOXIDE 30.6 mmol/L (21-32); CHLORIDE SERUM 109 mmol/L (98-107); GFR1 > 60 mL/min; GLUCOSE SERUM 83 mg/dL (74-106); POTASSIUM SERUM 4.8 mmol/L (3.5-5.1); SODIUM SERUM 144 mmol/L (136-145); TOTAL PROTEIN, SERUM 6.4 g/dL (6.4-8.2)
[2020-01-16 07:14] LABS: ALBUMIN 2.3 g/dL (3.4-5.0)
--- NOTE | 2020-01-16 07:25 | NUR ---
RECEIVED PT FROM KENO DEALER RN. AOGuicho ABLE TO MAKE NEEDS KNOWN. NSR ON TELE 3. LUNGS CTA, ON RA. RESP E/U. DENIES SOB. ABDOMEN SOFT/ROUND, DENIES N/V/D. VOIDS FREELY. SKIN INTACT. DENIES PAIN AT THIS TIME. IT TO RW SALINE LOCK, CALL LIGHT IN REACH, WILL CONTINUE TO MONITOR.
[2020-01-16 08:24] VITALS: BP 106/67
--- NOTE | 2020-01-16 08:30 | NUR ---
PT RECEIVED MEDICATION AND TOLERATED WELL. STARTED VANCO INFUSION, NO PROBLEMS NOTED. PT DENIES ANY SOB/COUGH. CALL LIGHT IN REACH, WILL CONTINUE TO MONITOR.
[2020-01-16 12:51] VITALS: BP 100/60
[2020-01-16 16:00] VITALS: BP 95/55
[2020-01-16 17:48] VITALS: BP 95/55
--- NOTE | 2020-01-16 18:00 | NUR ---
PT DENIES ANY SOB, LAYING DOWN IN BED. WILL ENDORSE CARE TO UROGYNAECOLOGIST RN.
[2020-01-16 20:05] VITALS: BP 100/63
--- NOTE | 2020-01-16 20:05 | NUR ---
RECEIVED PT FROM AM NURSEALEXIS. PT AAOX4, ABLE TO FOLLOW COMMANDS AND MAKE NEEDS KNOWN. TELE#[address] SR. PT DENIES CP/PRESSURE AT THIS TIME. PALPABLE PULSES TO ALL EXTREMETIES. NO EDEMA NOTED. DIMINISHED LUNG SOUNDS, BREATHING EVEN AND UNLABORED ON RA. O2 SAT 97%. NO SOB NOTED. PT DENIES ANY COUGH. ABD SOFT AND NONDISTENDED. ACTIVE BS X4 QUAD. DENIES N/V/D. VOIDS FREELY, BRP. AMBULATORY. IV TO RW PATENT AND INTACT. SITE WNL. NO ACUTE DISTRESS NOTED. BED AT LOWEST SETTING. SIDE RAILS X2 UP. CALL LIGHT WITHING REACH. DROPLET PRECAUTIONS IN PLACE. PT POSITIVE COVID-19. WILL CONT TO MONITOR.
--- NOTE | 2020-01-17 00:05 | NUR ---
PT RESTING COMFORTABLY IN BED, BREATHING EVEN AND UNLABORED ON RA. O2 SAT 97%. NO SOB NOTED. PT EASILY AROUSABLE TO VERBAL STIMULI. NO ACUTE DISTRESS NOTED. SAFETY PRECAUTIONS IN PLACE. CALL LIGHT WITHING REACH. WILL CONT TO MONITOR.
--- NOTE | 2020-01-17 00:10 | NUR ---
PT RESTING COMFORTABLY IN BED, BREATHING EVEN AND UNLABORED ON 2L NC . O2 SAT 97%. NO SOB NOTED. PT EASILY AROUSABLE TO VERBAL STIMULI. NO ACUTE DISTRESS NOTED. SAFETY PRECAUTIONS IN PLACE. CALL LIGHT WITHING REACH. WILL CONT TO MONITOR.
[2020-01-17 05:41] VITALS: BP 98/59
--- NOTE | 2020-01-17 06:03 | NUR ---
PT SLEPT AT INTERVALS THROUGHOUT THE NIGHT, BREATHING EVEN AND UNLABORED ON RA. NO SIGNIFICANT CHANGES DURING SHIFT. PT REMAINED AFIBRILE DURING SHIFT. ALL NEEDS ASSESSED AND ATTENDED TO. SAFETY PRECATIONS IN PLACE. CALL LIGHT WITHING REACH. NO ACUTE DISTRESS NOTED. WILL CONT TO MONITOR AND ENDORSE CARE TO AM NURSE.
--- NOTE | 2020-01-17 07:30 | NUR ---
RECIEVED PT FROM PM NURSE. CALLED INTO PT ROOM TO INFORM OF CHANGE OF SHIFT. PT STATES HE DOES NOT NEED ANYTHING AT THIS TIME. PT DENIES SOB. PT ON TELE MONITOR 3, HR 73 SPO2 97%. INFORMED PT I WILL ENTER ROOM SHORTLY TO GIVE BREAKFAST AND ADMINISTER AM MEDS. PT VERBALIZES UNDERSTANDING. ENCOURGAED TO USE CALL LIGHT IF NEEDED.
[2020-01-17 08:58] VITALS: BP 103/64
--- NOTE | 2020-01-17 09:00 | NUR ---
ADMINISTERED AM MEDS TO PT. PT TOLERATED WELL. AM ASSESSMENT COMPLETED, PT ATE BREAKFAST. PT DENIES SOB OR PAIN AT THIS TIME. WILL CONTINUE TO MONITOR. CALL LIGHT IN REACH, PT ENCOURAGED TO USE IF NEEDED.
--- NOTE | 2020-01-17 09:25 | NUR ---
CALLED PHARMACY AND CLARIFIED IF IT WAS OKAY TO HANG VANCO SINCE THE LAST TROUGH WAS DONE ON THE AND WAS SLIGHTLY ELEVATED. PER PHARMACY IT IS OKAY TO HANG VANCO, THEY ORDERED A RANDOM VANCO TROUGH FOR TOMORROW. UPON ATTEMPTING TO HANG VANCO BAG, PTS IV TO RIGHT WRIST WAS LEAKING. UPON ASIRATING THERE WAS NO BLOOD RETURN. I REMOVED THE IV AND ATTEMPTED TO INSERT A NEW ONE. I WAS SUCCESSFUL ON ATTEMPT 2 AND INSERTED AN IV TO RIGHT FOREARM. UPON ASPIRATING GOT BRISK BLOOD RETURN. FLUSHES WELL. IV INFUSING VANCO. INFUSING WELL. PT TOLERATED WELL. PT DENIES PAIN AT THIS TIME. WILL CONTINUE TO MONITOR.
--- NOTE | 2020-01-17 11:21 | NUR ---
SPOKE TO DR SAUCEDO REGARDING ZOSYN ANTIBIOTIC BEING DISCONTINUED TODAY. PER DR SAUCEDO, IT IS OKAY FOR ANTIBIOTIC TO DC. OTHER ANTIBIOTICS WILL BE CONTINUED.
[2020-01-17 12:42] VITALS: BP 96/54
--- NOTE | 2020-01-17 13:16 | NUR ---
PT HAD LUNCH DELIVERED, HAS NO NEEDS AT THIS TIME.
[2020-01-17 17:14] VITALS: BP 99/62
--- NOTE | 2020-01-17 17:20 | NUR ---
IN PTS ROOM ADMINISTERING DOSE OF ZITHRO. PT DENIES PAIN OR SOB. DR LUND AT BEDSIDE SPEAKING TO PT. PER DR LUND, PT IS GOOD FOR DISCHARGE FROM A PULMONARY STANDPOINT. PT AWARE AND AGREEABLE.
--- NOTE | 2020-01-17 19:30 | NUR ---
RECEIVED PATIENT REPORT FROM JANE MONCADA. PATIENT IS AAOX4, DENIES PEREZ/DIZZINESS. BREATHING EVEN AND UNLABORED ON RA O2SAT 97% WITH NO RESP DISTRESS NOTED. PATIENT DENIES COUGH. TELE #[address] ON MONITOR. PATIENT DENIES CHEST PAIN/PRESSURE. IV RFA PATENT, FLUSHED WELL SL. DENIES ANY PAIN. NO ACUTE DISTRESS NOTED. CALL BUTTON WITHIN REACH. SAFETY PRECAUTIONS IN PLACE. GUARDS AT BEDSIDE. WILL CONTINUE TO MONITOR.
[2020-01-17 20:46] VITALS: BP 106/58
--- NOTE | 2020-01-18 00:58 | NUR ---
PATIENT RESTING, EASILY AROUSABLE. PATIENT ON RA O2SAT 99% NO RESP DISTRESS NOTED. CALL BUTTON WITHIN REACH. SAFETY PREACAUTIONS IN PLACE. WILL MONITOR.
[2020-01-18 05:58] VITALS: BP 111/70
--- NOTE | 2020-01-18 06:30 | NUR ---
PATIENT RESTING, BREATHING EVEN AND UNLABORED ON RA WITH NO SOB NOTED, NO ACUTE DISTRESS NOTED. ALL NEEDS MET. MEDICATED PER EMAR. CALL BUTTON WITHIN REACH. SAFETY PRECAUTIONS IN PLACE. WILL CONTINUE TO MONITOR AND ENDORSE CARE TO DAY SHIFT RN. DROPLET PRECAUTIONS IN PLACE. GUARDS AT BEDSIDE.
--- NOTE | 2020-01-18 07:17 | NUR ---
PATIENT IN NO ACUTE DISTRESS. ENDORSED CARE TO DAY SHIFT RN, ALL QUESTIONS ADDRESSED.
--- NOTE | 2020-01-18 07:36 | NUR ---
RECEIVED PATIENT. IN BED, AAOX4. NO ACUTE RESP DISTRESS NOTED. NO SOB. REMAINS ON ROOM AIR WITH 95% O2 SATURATION. NO C/O PAIN AT THIS TIME. IV INTACT AND PATENT. NO ERYTHEMA/SWELLING NOTED. SAFETY PREC IN PLACE. CALL LIGHT WITHIN REACH. WILL CONTINUE TO MONITOR.
--- NOTE | 2020-01-18 08:02 | NUR ---
SPOKE WITH PHARMACY REGARDING VANCO TROUGH 16.4. PER PHARMACY, OK TO HANG CURRENT VANCOMYCIN IN HAND. WILL CONTINUE TO MONITOR.
[2020-01-18 08:50] VITALS: BP 98/63
--- NOTE | 2020-01-18 10:30 | NUR ---
SMALL BLISTER NOTED TO RIGHT FOOT TOE. NEW CLEAN SOCKS PROVIDED AND EDUCATED PATIENT TO KEEP SITE CLEAN AND DRY, AND TO AVOID POKING BLISTER. PATIENT VERBALIZED UNDERSTANDING. WILL CONTINUE TO MONITOR.
[2020-01-18 11:34] VITALS: BP 98/63
--- NOTE | 2020-01-18 12:10 | NUR ---
DISCHARGE PAPERS GIVEN TO GUARDS. PATIENT MADE AWARE REGARDING DISCHARGE ORDER. DISCHARGE INSTRUCTIONS GIVEN TO PATIENT. PT VERBALIZED UNDERSTANDING. ALL QUESTIONS AND CONCERNS ADDRESSED. D/C IV, TOLERATED WELL. CATHETER INTACT. APPLIED PRESSURE. GAUZE AND TAPE IN PLACE. ID BANDS REMOVED. TELE MONITOR CLEANSED AND RETURNED TO TELE STATION. LUNCH WILL BE PROVIDED BEFORE DISCHARGE. PATIENT STABLE. WILL CONTINUE TO MONITOR.
--- NOTE | 2020-01-18 14:04 | NUR ---
PATIENT IS BEING DISCHARGED IN STABLE CONDITION. NO ACUTE DISTRESS NOTED. ALL BELONGINGS SENT HOME WITH PATIENT. ACCOMPANIED BY GUARDS AND CANVAS REPAIRER TO LOBBY VIA WHEELCHAIR. MASK PROVIDED. ALL NEEDS MET.
== END 2020-01-18 14:04 | disposition other institution (70) | DRG 871 ==
LOC: ED 12:22 → DU 13:53
PROVIDERS: Emergency Medicine; Internal Medicine; ADMIT Internal Medicine
DX: A41.89 Other specified sepsis (principal); U07.1 COVID-19; R65.21 Severe sepsis with septic shock; J12.89 Other viral pneumonia; J96.01 Acute respiratory failure with hypoxia; E78.5 Hyperlipidemia, unspecified; N40.0 Benign prostatic hyperplasia without lower urinary tract symptoms; E78.00 Pure hypercholesterolemia, unspecified; Z79.82 Long term (current) use of aspirin; D64.9 Anemia, unspecified
CPT/HCPCS: 36600; 83880; 85378; G0378; J0456; J1650; J2543; J3370; J7030; J7040; J7050; Q0092; U0003-CS